=== PATIENT | male | born 1955 | race Caucasian/White ===

== ENCOUNTER → 2025-07-28 08:02 | Outpatient (CLI) | payer MEDICARE, SELFPAY ==
--- NOTE | 2025-07-29 10:51 | DI.NM.S_ITS ---
DATE OF SERVICE: 07/28/2025 EXERCISE TREADMILL STRESS TEST PROCEDURE: Exercise treadmill stress test without imaging. ORDERING PROVIDER: Scott Rene MD INDICATIONS: The patient is a 70-year-old male with known coronary artery calcification and a history of near syncope. FINDINGS: 1. The patient was able to exercise for 8 minutes 21 seconds on a standard [employer] protocol, suggesting very good exercise capacity with an VINIICUS of -18%, achieving 10.1 METS. 2. He had a normal heart rate response to exercise, achieving a maximum heart rate of 145 BPM (97% of his predicted maximum). He had a mild hypertensive blood pressure response with a resting blood pressure of 170/100, increasing to a maximum of 220/90 with stress. 3. He had moderate exertional dyspnea but no chest discomfort or other anginal symptoms. 4. His resting ECG shows sinus rhythm with occasional PVCs but normal ST segments. There are no significant ST-segment shifts or arrhythmias with stress. IMPRESSION: 1. Normal exercise treadmill stress test for ischemia. 2. Very good exercise capacity without angina or arrhythmias. 3. Resting hypertension with a mild hypertensive blood pressure response to exercise. Cooper Ledezma - /marciano/BING doc#: [id number]/job#: [id number] dd: 07/28/2025 17:12:00 dt: 07/28/2025 18:34:00 DICTATING MD/COPIES TO: King Meyer MD; Scott Rene MD COPIES MNE: CORNELIA;
== END ==
PROVIDERS: Referring Provider Internal Medicine Cardiovascular Disease; Visit Provider Internal Medicine Cardiovascular Disease
DX: I25.10 Atherosclerotic heart disease of native coronary artery without angina pectoris (principal); E78.00 Pure hypercholesterolemia, unspecified
CPT/HCPCS: 93017